=== PATIENT | female | born 1945 | race Caucasian/White ===

== ENCOUNTER 2020-06-23 19:57 | Emergency (ER) | payer MEDICARE ==
[2020-06-23] MEDS ORDERED: IBUPROFEN 600 MG TABLET PO ONE (21:29)
[2020-06-23] MEDS ORDERED: LIDOCAINE 5% (700 MG) TRANSDERMAL ADH..PATCH TP ONE (21:29)
--- NOTE | 2020-06-23 21:37 | ER Document Report ---
ED Neck/Back Problem - General Chief Complaint: Back Injury Stated Complaint: BACK PAIN Time Seen by Provider: 06/23/20 21:29 Primary Care Provider: GLORY MCCLOUD MD [ASSOCIATE] - Follow up as needed Mode of Arrival: Ambulatory Information source: Patient Notes: 74-year-old female presents to ED for complaint of back pain. She states she was helping clean in the yard and she was pulling on a big root when also only she felt a pop in her back and then there was fire around the spot and she became flushed and it took her a little while to be able to get back up off the ground. She states she has not lost control of bowel bladder, she has had no loss of sensation to her lower extremities. She has not lost control of her legs. And she has had no saddle anesthesia. She is able to walk with a even steady gait at this time. She is able to get up and down from the chair. She states it is still very painful to the left of the lumbar area to the middle. She does have bony tenderness. Constitutional: Negative for fever. HENT: Negative for sore throat. Eyes: Negative for visual changes. Cardiovascular: Negative for chest pain. Respiratory: Negative for shortness of breath. Gastrointestinal: Negative for abdominal pain, vomiting or diarrhea. Genitourinary: Negative for dysuria. Musculoskeletal: Tenderness to the lumbar area with full range of motion no saddle anesthesia no loss of control of bowel bladder no loss of control or sensation to the lower extremities. Skin: Negative for rash. Neurological: Negative for headaches, weakness or numbness. 10 point ROS negative except as marked above and in HPI PHYSICAL EXAMINATION: GENERAL: Well-appearing, well-nourished and in no acute distress. HEAD: Atraumatic, normocephalic. EYES: Pupils equal round extraocular movements intact, conjunctiva are normal. ENT: Nares patent NECK: Normal range of motion LUNGS: No respiratory distress Musculoskeletal: Normal range of motion patient has tenderness to palpation to the lower back. She does have bony tenderness to the lumbar region. She does not have any obvious deformities. She is able to walk with a steady gait. NEUROLOGICAL: Normal speech, normal gait. PSYCH: Normal mood, normal affect. SKIN: Warm, Dry, normal turgor, no rashes or lesions noted. - HPI Patient complains to provider of: Pain, Injury, Lower back Onset: Just prior to arrival Where: Outdoors Onset: Sudden Quality of pain: Sharp Severity: Moderate Pain Level: 4 Context: Lifting Recent injury: Yes Associated symptoms: Lower back pain. denies: Incontinence, Like prior neck/back pain, Motor loss, Numbness/tingling, Radiation to arm, Radiation to chest, Radiation to leg, Sensory loss, Sweaty, Unable to urinate Exacerbated by: Movement of trunk, Sitting position Relieved by: Nothing Similar symptoms previously: No Recently seen / treated by doctor: Yes - Related Data Allergies/Adverse Reactions: codeine Adverse Reaction (Mild, Verified 06/23/20 21:23) Nausea Past Medical History - General Information source: Patient - Social History Smoking Status: Never Smoker Frequency of alcohol use: None Drug Abuse: None Lives with: Family Family History: Reviewed & Not Pertinent Patient has suicidal ideation: No Patient has homicidal ideation: No - Past Medical History Cardiac Medical History: Reports: Hx Hypercholesterolemia, Hx Hypertension Pulmonary Medical History: Reports: None EENT Medical History: Reports: None Neurological Medical History: Reports: None Endocrine Medical History: Reports: None Renal/ Medical History: Reports: None Malignancy Medical History: Reports: None GI Medical History: Reports: Hx Gastroesophageal Reflux Disease Musculoskeletal Medical History: Reports Hx Arthritis, Reports Other - Osteoporosis Skin Medical History: Reports None Psychiatric Medical History: Reports: None Traumatic Medical History: Reports: None Infectious Medical History: Reports: None Surgical Hx: Negative Past Surgical History: Reports: None - Immunizations Immunizations up to date: Yes Hx Diphtheria, Pertussis, Tetanus Vaccination: Yes Physical Exam - Vital signs Vitals: Temp Pulse Resp BP Pulse Ox 98.7 F 77 18 153/90 H 96 06/23/20 21:08 06/23/20 21:08 06/23/20 21:08 06/23/20 21:08 06/23/20 21:08 Course - Re-evaluation Re-evalutation: 06/23/20 23:51 With patient permission I did discuss the x-ray with the patient and her daughter who is a nurse at the hospital. I did give her written report of the x-ray to the patient. Patient was treated with ibuprofen Flexeril and Lidoderm patch. She was discharged home with prescription for Flexeril and instructions to follow-up with primary care doctor tomorrow. After performing a Medical Screening Examination, I estimate there is LOW risk for EXPANDING OR RUPTURED ABDOMINAL AORTIC ANEURYSM, CAUDA EQUINA SYNDROME, EPIDURAL MASS LESION, or HERNIATED DISK CAUSING SEVERE SPINAL STENOSIS, thus I consider the discharge disposition reasonable. I have reevaluated this patient multiple times and no significant life threatening changes are noted. The patient and I have discussed the diagnosis and risks, and we agree with discharging home and close follow-up. We also discussed returning to the Emergency Department immediately if new or worsening symptoms occur with the understanding that symptoms and pre sentations can change. We have discussed the symptoms which are most concerning (e.g., saddle anesthesia, urinary or bowel incontinence or retention, changing or worsening pain) that necessitate immediate return. - Vital Signs Vital signs: Temp Pulse Resp BP Pulse Ox 97.9 F 69 16 171/71 H 96 06/23/20 23:05 06/23/20 23:05 06/23/20 23:05 06/23/20 23:05 06/23/20 23:05 - Diagnostic Test Radiology reviewed: Image reviewed, Reports reviewed Discharge - Discharge Clinical Impression: Low back pain Qualifiers: Chronicity: acute Back pain laterality: left Sciatica presence: without sciatica Qualified Code(s): M54.5 - Low back pain Condition: Stable Disposition: HOME, SELF-CARE Additional Instructions: LOW BACK PAIN: Three out of every four people will have an episode of disabling back pain during their lifetime. Most commonly the pain is due to straining of the muscles and ligaments in the low back. Usual treatment includes: (1) Rest on a firm surface. Avoid lying on your stomach. (2) Ice pack the painful area. After a few days, gentle heat may be used intermittently to relax the area, or ice packs can be continued. (3) Medication may be needed -- muscle relaxers and antiinflammatory medicines are commonly used. (4) As the back improves, exercises are prescribed to strengthen the back and abdominal muscles. Your doctor will advise you on the proper care for your back at each stage in your recovery. You may be better in a few days -- or healing may take several weeks. If new symptoms of a "herniated disc" (radiation of pain, numbness, or tingling down the back of the leg or weakness in the leg) occur, you should be re-examined. Further testing may be necessary. Ibuprofen Ibuprofen is an excellent, safe drug for pain control. In addition, it has potent antiinflammatory effects which are beneficial, especially in the treatment of injuries, arthritis, or tendonitis. It's best to take ibuprofen with food. Persons with ulcer disease or allergy to aspirin should notify their physician of this before taking ibuprofen. Take the medication exactly as prescribed. Don't take additional doses unless instructed to do so by your doctor. If you develop wheezing, shortness of breath, hives, faintness, stomach pain, vomiting, or dark black stools, return for re-evaluation at once. MUSCLE RELAXERS: Muscle relaxing medications are usually prescribed for acute muscle spasm or injury to the neck and back. They are often combined with antiinflammatory pain medication for increased relief. You may stop the muscle relaxer when the pain and stiffness have improved. Start the medication again if spasms recur. Muscle relaxers may cause drowsiness, especially with the first dose. Do not operate machinery or drive while under the effects of the medication. Most muscle relaxers last up to 24 hours. Do not combine the medication with alcohol. ICE PACKS: Apply ice packs frequently against the painful area. Many different schedules are recommended, such as "20 minutes on, 20 minutes off" or "one hour ice, two hours rest." If you need to work, you may need to go longer between ice treatments. You should plan to have the area ice packed AT LEAST one fourth of the time. The ice should be applied over the wrap, tape, or splint, or over a layer of cloth -- not directly against the skin. Some ice bags have a built-in cloth and can be put directly on the skin. WARM PACKS: After approximately two days, apply gentle heat (such as a heating pad or hot water bottle) for about 20 to 30 minutes about every two hours -- at least four times daily. Warmth and elevation will help you make a more rapid recovery, and will ease the pain considerably. Do not use HOT heat, and never apply heat for longer than 30 minutes. The continuous heat can invisibly damage skin and muscles -- even when no burn is seen on the surface. Damaged muscles can make you MORE sore. Stretching Exercises for the Back The physician has recommended that you begin stretching exercises for your back. These are often used even while the back is painful. However, you should notify the physician if the activities seem to increase your pain. PELVIC TILT: Lie flat on your back with knees bent. Tighten your stomach and buttock muscles so it flattens your lower back against the floor. Hold 10 seconds. Repeat 10 times, twice daily. KNEE RAISE: Lying on the back with knees bent, raise one knee to your chest, then the other. Hold both knees against the chest 10 seconds, then lower one knee at a time. Repeat 10 times, twice daily. PARTIAL TRUNK RAISE: Lie face down, arms at your sides. Keeping your waist on the floor, use your arms raise your chest up. Support yourself on your elbows for 30 seconds. Repeat twice daily, increasing the time to two minutes as you recover. Ibuprofen Ibuprofen is an excellent, safe drug for pain control. In addition, it has potent antiinflammatory effects which are beneficial, especially in the treatment of injuries, arthritis, or tendonitis. It's best to take ibuprofen with food. Persons with ulcer disease or allergy to aspirin should notify their physician of this before taking ibuprofen. Take the medication exactly as prescribed. Don't take additional doses unless instructed to do so by your doctor. If you develop wheezing, shortness of breath, hives, faintness, stomach pain, vomiting, or dark black stools, return for re-evaluation at once. FOLLOW-UP CARE: If you have been referred to a physician for follow-up care, call the physicians office for an appointment as you were instructed or within the next two days. If you experience worsening or a significant change in your symptoms, notify the physician immediately or return to the Emergency Department at any time for re-evaluation. Prescriptions: Cyclobenzaprine HCl [Flexeril 10 mg Tablet] 5 - 10 mg PO TIDP PRN #10 tab PRN Reason: Forms: Elevated Blood Pressure Referrals: GLORY MCCLOUD MD [ASSOCIATE] - Follow up as needed
--- NOTE | 2020-06-23 22:33 | RADIOLOGY REPORT (SQ) ---
INDICATION: Low back pain felt a pop. TECHNIQUE: 5 view(s) of the lumbar spine. Both obliques COMPARISON: None FINDINGS: No evidence of acute displaced fracture. Alignment is anatomic. Significant age-appropriate osteoarthritis. Vertebral body heights are well-maintained. Surrounding soft tissues are unremarkable. IMPRESSION: No evidence of acute displaced fracture of the lumbar spine. Osteoarthritis
[2020-06-23 23:07] VITALS: BP 171/71
[2020-06-23] MEDS ORDERED: CYCLOBENZAPRINE HCL 10 MG TABLET PO ONE (23:07)
== END 2020-06-23 23:12 | disposition home or self-care (01) ==
LOC: ER 19:57
DX: M54.5 Low back pain (principal); X50.9XXA Other and unspecified overexertion or strenuous movements or postures, initial encounter; Y93.H9 Activity, other involving exterior property and land maintenance, building and construction; I10 Essential (primary) hypertension
CPT/HCPCS: 99283; 72110; A9270 ×3